=== PATIENT | female | born 1985 | race Caucasian/White ===

== ENCOUNTER 2018-03-16 17:53 | Emergency (ER) | payer OTHER ==
[~2018-03-16] VITALS: Ht 167.6 cm; Wt 91.9 kg
[~2018-03-16 17:53] MED LIST: METH10TA4 PO; MULTTAB58 PO
[2018-03-16 17:57] VITALS: TEMP 36.6; Ht 167.6 cm; Wt 91.9 kg
[2018-03-16] MEDS ORDERED: SODIUM CHLORIDE 0.9% 1000ML 1,000 ML IV STA (18:13)
[2018-03-16] MEDS ORDERED: ONDANSETRON INJ 2 MG/ML 2 ML VIAL IV STA (18:13)
[2018-03-16] MEDS ORDERED: MELA3TAB12 PO (18:39)
[2018-03-16 18:43] VITALS: O2SAT 99
[2018-03-16 19:30] LABS: BASO % 0.6 %; BASO ABS # 0.04 K/uL (0-0.2); EOS % 1.8 %; EOS ABS # 0.13 K/uL (0-0.5); HEMATOCRIT 37.9 % (37-47); HEMOGLOBIN 12.6 g/dL (12.0-16.0); IG# 0.01 K/uL (0.00-0.02); LYMPH % 24.6 %; LYMPH ABS # 1.76 K/uL (1.2-3.4); MEAN CELL VOLUME 89.2 fL (80-100); MEAN CORPUSCULAR HEMOGLOBIN 29.6 pg (25-34); MEAN CORPUSCULAR HGB CONC 33.2 g/dl (32-36); MEAN PLATELET VOLUME 9.8 fL (7.4-10.4); MONO % 8.8 %; MONO ABS # 0.63 K/uL (0.11-0.59); NEUT % 64.1 %; NEUT ABS # 4.57 K/uL (1.4-6.5); PLATELET COUNT 287 K/uL (130-400); RED CELL DISTRIBUTION WIDTH CV 13.2 % (11.5-14.5); WHITE BLOOD COUNT 7.14 K/uL (4.8-10.8)
[2018-03-16 19:39] LABS: CALCIUM 9.2 mg/dl (8.5-10.1); CREATININE 0.89 mg/dl (0.60-1.20); INR 1.1 (0.9-1.1); POTASSIUM 3.3 mmol/L (3.5-5.1); PTT PATIENT 26.4 SECONDS (21.0-31.0)
--- NOTE | 2018-03-16 19:45 | DIAGNOSTIC IMAGING REPORT ---
PA CHEST WITH ABDOMINAL SERIES CLINICAL HISTORY: Atypical chest pain. Generalized abdominal pain. FINDINGS: A PA chest radiograph is compared to study dated 02/07/2012. The cardiomediastinal silhouette is unremarkable. The lungs and pleural spaces are clear. No pneumothorax is seen. The bony thorax is grossly intact. Supine and erect abdominal radiographs are correlated with abdominal CT dated 06/28/2016. There is a nonobstructed abdominal bowel gas pattern. Moderate fecal retention is noted in the right colon. No evidence of intraperitoneal free air is seen. There are no abnormal abdominal calcifications. Small phleboliths are seen in the pelvis. The lumbosacral spine and bony pelvis appear intact. IMPRESSION: 1. No active disease in the chest. 2. Nonobstructed abdominal bowel gas pattern. Electronically signed by: Selvin Roberson M.D. 03/16/2018 7:44 PM Dictated Date/Time: 03/16/2018 7:42 PM
[2018-03-16] MEDS ORDERED: ONDA4TAB10 SL (19:55)
[2018-03-16] MEDS ORDERED: ONDANSETRON HOME PACK 4MG OD TAB PO ONE (20:00)
[2018-03-16 20:04] VITALS: BP 128/72; PULSE 78; O2SAT 98
--- NOTE | 2018-03-17 00:35 | EMERGENCY ROOM VISIT NOTE ---
History Report prepared by Sophie: Maikel Cuellar Under the Supervision of: Dr. Alejandro Wilkins M.D. First contact with patient: 18:00 Chief Complaint: VOMITING Stated Complaint: VERY BAD CHEST PAIN, THROWING UP BLOOD History of Present Illness The patient is a 32 year old female who presents to the Emergency Room with complaints of persistent, severe vomiting beginning last night. The patient reports noticing blood in her vomit this morning. She describes the vomit as dark, clumpy, and red. She does state that she was drinking red Gatorade but feels like she tasted blood. The patient notes that she experienced diarrhea, headaches, hot flashes, swelling of her lower extremity at the ankle, and abdominal pain last night, but states that these symptoms have since resolved. 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 She also reports experiencing sharp, burning pain in the center of her chest which is worsened upon inhalation and vomiting.The patient denies experiencing melena or fever. She also denies taking an oral contraceptive. The patient notes that she used to smoke 1 pack of cigarettes per day, but states that she has reduced her smoking to 1/2 pack a day. She reports feeling SOB. Source of History: patient Onset: Last night Position: chest, abdomen Symptom Intensity: severe Quality: other (vomiting ) Timing: other (persitent ) Modifying Factors (Worsening): other (inhalation. ) Modifying Factors (Relieving): other (none ) Associated Symptoms: + headache, + chest pain, + SOB, + nausea, + abdominal pain, + diarrhea, No fevers, No melena Note: Associated Symptoms: Hot flashes, swelling of ankles Review of Systems See HPI for pertinent positives & negatives. A total of 10 systems reviewed and were otherwise negative. 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 (2) Emphysema (3) Hypertension (4) MAL GEOFF CERVIX UTERI NOS (5) MIGRAINE UNSPECIFIED W/O INTRACT MGRN W/O STATUS MIGRAINOSUS (6) OPIOID ABUSE-UNSPEC Surgical Problems: (1) Hx of tubal ligation Family History Diabetes mellitus Hypertension Social History Smoking Status: Current Every Day Smoker Alcohol Use: occasionally Drug Use: none Marital Status: Housing Status: lives with family Occupation Status: unemployed Current/Historical Medications Scheduled Melatonin-Pyridoxine (Melatonin), 2 TAB PO HS Methylphenidate (Ritalin), 10 MG PO TID Ondasetron Odt (Zofran Odt), 4 MG SL Q6H Allergies Coded Allergies: Ibuprofen (Verified Allergy, Intermediate, SWELLING, 09/11/17) Vancomycin (Verified Adverse Reaction, Intermediate, Generalized redness and itching, 09/11/17) Tramadol (Unverified Adverse Reaction, Unknown, seizures, 09/11/17) Physical Exam Vital Signs Date Time Temp Pulse Resp B/P (MAP) Pulse Ox O2 Delivery O2 Flow Rate FiO2 03/16/18 20:04 78 20 128/72 98 03/16/18 18:48 105 03/16/18 18:43 99 Room Air 03/16/18 18:43 104 22 116/59 99 Room Air 03/16/18 17:57 36.6 114 20 131/78 96 Room Air Physical Exam Constitutional: Vital signs reviewed. Eyes: Pupils are equal round reactive to light. Conjunctiva are noninjected. ENT: Pharynx is clear without erythema or exudate. Mucous membranes are dry. Neck supple without meningeal signs. Respiratory: Clear to auscultation bilaterally. Breath sounds are equal bilaterally. Cardiovascular: Regular rate and rhythm. No rubs or gallops. GI: Soft, nondistended and nontender. Bowel sounds are present. Musculoskeletal: Tenderness to the lower sternum on palpation. No significant edema to lower extremities or tenderness. Integumentary: No cyanosis. Rectal: Guaiac negative, light brown liquidy stool. Neurological: The patient is awake and alert. No focal deficits. Psychiatric: Normal affect. Medical Decision & Procedures ER Provider Diagnostic Interpretation: Radiology results as stated below per my review and the radiologist's interpretation: PA CHEST WITH ABDOMINAL SERIES CLINICAL HISTORY: Atypical chest pain. Generalized abdominal pain. FINDINGS: A PA chest radiograph is compared to study dated 02/07/2012. The cardiomediastinal silhouette is unremarkable. The lungs and pleural spaces are clear. No pneumothorax is seen. The bony thorax is grossly intact. Supine and erect abdominal radiographs are correlated with abdominal CT dated 06/28/2016. There is a nonobstructed abdominal bowel gas pattern. Moderate fecal retention is noted in the right colon. No evidence of intraperitoneal free air is seen. There are no abnormal abdominal calcifications. Small phleboliths are seen in the pelvis. The lumbosacral spine and bony pelvis appear intact. IMPRESSION: 1. No active disease in the chest. 2. Nonobstructed abdominal bowel gas pattern. Electronically signed by: Selvin Roberson M.D. 03/16/2018 7:44 PM Dictated Date/Time: 03/16/2018 7:42 PM Laboratory Results 03/16/18 18:49 Red Blood Count 4.25, Mean Corpuscular Volume 89.2, Mean Corpuscular Hemoglobin 29.6, Mean Corpuscular Hemoglobin Concent 33.2, Mean Platelet Volume 9.8, Neutrophils (%) (Auto) 64.1, Lymphocytes (%) (Auto) 24.6, Monocytes (%) (Auto) 8.8, Eosinophils (%) (Auto) 1.8, Basophils (%) (Auto) 0.6, Neutrophils # (Auto) 4.57, Lymphocytes # (Auto) 1.76, Monocytes # (Auto) 0.63, Eosinophils # (Auto) 0.13, Basophils # (Auto) 0.04 03/16/18 18:49 Test 03/16/18 18:49 03/16/18 19:12 White Blood Count 7.14 K/uL (4.8-10.8) Red Blood Count 4.25 M/uL (4.2-5.4) Hemoglobin 12.6 g/dL (12.0-16.0) Hematocrit 37.9 % (37-47) Mean Corpuscular Volume 89.2 fL (80-100) Mean Corpuscular Hemoglobin 29.6 pg (25-34) Mean Corpuscular Hemoglobin Concent 33.2 g/dl (32-36) Platelet Count 287 K/uL (130-400) Mean Platelet Volume 9.8 fL (7.4-10.4) Neutrophils (%) (Auto) 64.1 % Lymphocytes (%) (Auto) 24.6 % Monocytes (%) (Auto) 8.8 % Eosinophils (%) (Auto) 1.8 % Basophils (%) (Auto) 0.6 % Neutrophils # (Auto) 4.57 K/uL (1.4-6.5) Lymphocytes # (Auto) 1.76 K/uL (1.2-3.4) Monocytes # (Auto) 0.63 K/uL (0.11-0.59) Eosinophils # (Auto) 0.13 K/uL (0-0.5) Basophils # (Auto) 0.04 K/uL (0-0.2) RDW Standard Deviation 43.0 fL (36.4-46.3) RDW Coefficient of Variation 13.2 % (11.5-14.5) Immature Granulocyte % (Auto) 0.1 % Immature Granulocyte # (Auto) 0.01 K/uL (0.00-0.02) Prothrombin Time 11.4 SECONDS (9.0-12.0) Prothromb Time International Ratio 1.1 (0.9-1.1) Activated Partial Thromboplast Time 26.4 SECONDS (21.0-31.0) Partial Thromboplastin Ratio 1.0 Anion Gap 8.0 mmol/L (3-11) Est Creatinine Clear Calc Drug Dose 104.6 ml/min Estimated GFR () 100.1 Estimated GFR (Non- 86.4 BUN/Creatinine Ratio 17.2 (10-20) Calcium Level 9.2 mg/dl (8.5-10.1) Bedside D-Dimer 254 ng/mlFEU (0-450) Laboratory results as reviewed by me. Medications Administered Medications (Trade) Dose Ordered Sig/Neeta Route Start Time Stop Time Status Last Admin Dose Admin Sodium Chloride 1,000 ml @ 999 mls/hr Q1H1M STAT IV 03/16/18 18:13 03/16/18 19:13 DC 03/16/18 18:42 999 MLS/HR Ondansetron HCl (Zofran Inj) 4 mg NOW STAT IV 03/16/18 18:13 03/16/18 18:15 DC 03/16/18 18:42 4 MG Ondansetron HCl (ZOFRAN ODT 4MG Home Pack) 1 homepack UD ONCE PO 03/16/18 20:00 03/16/18 20:01 DC 03/16/18 20:00 1 HOMEPACK ECG Per My Interpretation Indication: chest pain Rate (beats per minute): 96 Rhythm: normal sinus Findings: other (No st elevations, no PVCs. ) ED Course 1802: The patient was evaluated in room C01. A complete history and physical exam was performed. 1812: Ordered Zofran Inj 4mg IV and Sodium Chloride 1000 ml @ 999 mls/hr IV 1951: I reevaluated the patient, she is feeling much better. 1999: Upon reevaluation, the patient appeared to have improvement of her symptoms. I discussed richard's findings with her. She verbalized agreement of the treatment plan. She was discharged home. Medical Decision This is a 32-year-old female who presents with vomiting, diarrhea and chest pain. Differential diagnosis includes gastroenteritis, foodborne illness, dehydration, electrolyte abnormality, Medina-Genao tear, Boerhaave syndrome, pulmonary embolism. I did perform a limited focused review of portions of the patient's old chart on the electronic medical record. The patient has had no recent pertinent visits to this hospital. I did evaluate the patient as noted above. The patient is presenting with vomiting and diarrhea since yesterday. Today she developed chest pain and tasted blood in her vomit. She denies having any abdominal pain and her exam is remarkable for point tenderness to the lower sternum on palpation which reproduces the pain she was complaining about. Rectal examination shows guaiac negative liquidy light brown stool. IV access was established. The patient was placed on a continuous afternoon nanny. I did order and personally review the patient's 12-lead EKG and abdominal/chest x-rays as described above. I did order and review the patient's blood work as noted in the electronic medical record. Her white blood cell count is not elevated. She is not anemic. Her d- dimer is negative. As mentioned above her chest pain is reproducible. I suspect the blood she saw in her vomitus was either from a Medina-Genao tear or related to the Gatorade she was drinking. She was informed of her test results. She was treated with Zofran and normal saline IV. She is did state that she felt better. She was discharged with a prescription for Zofran. Medication Reconcilliation Current Medication List: was personally reviewed by me Blood Pressure Screening Patient's blood pressure: Elevated blood pressure The patient is hypertensive Impression Primary Impression: Dehydration Additional Impressions: Vomiting Diarrhea Acute chest pain Hypokalemia Scribe Attestation The scribe's documentation has been prepared under my direct and personally reviewed by me in its entirety. I confirm that the note above accurately reflects all work, treatment, procedures, and medical decision making performed by me. Departure Information Dispostion Home / Self-Care Prescriptions Ondasetron Odt (ZOFRAN ODT) 4 Mg Tab 4 MG SL Q6H for Nausea, #6 TAB Prov: Alejandro Wilkins M.D. 03/16/18 Referrals Trey Barraza M.D. (PCP) Forms HOME CARE DOCUMENTATION FORM, IMPORTANT VISIT INFORMATION Patient Instructions ED Chest Pain Atypical Unkn Cause, ED Diet High Potassium, My [facility] Additional Instructions You have been examined and treated today on an emergency basis only. This is not a substitute for, or an effort to provide, complete comprehensive medical care. It is impossible to recognize and treat all injuries or illnesses in a single emergency department visit. It is therefore important that you follow up closely with your physician. Call as soon as possible for an appointment. Return for worsening symptoms or if you develop fever, rectal bleeding, black or bloody stools, abdominal pain or any other concerning symptoms. Problem Qualifiers Additional Impressions: Vomiting Vomiting type: unspecified Vomiting Intractability: non-intractable Nausea presence: with nausea Qualified Codes: R11.2 - Nausea with vomiting, unspecified Diarrhea Diarrhea type: unspecified type Qualified Codes: R19.7 - Diarrhea, unspecified
== END 2018-03-16 20:05 | disposition home or self-care (01) ==
LOC: C.EDB 17:54 → C.EDC 20:05
DX: E86.0 Dehydration (principal); R11.2 Nausea with vomiting, unspecified; R19.7 Diarrhea, unspecified; R07.89 Other chest pain; F17.200 Nicotine dependence, unspecified, uncomplicated; I10 Essential (primary) hypertension; Z79.899 Other long term (current) drug therapy; Z88.6 Allergy status to analgesic agent; Z88.1 Allergy status to other antibiotic agents

== ENCOUNTER 2018-06-25 11:38 | Emergency (ER) | payer OTHER ==
[~2018-06-25] VITALS: Ht 167.6 cm; Wt 76.8 kg
[~2018-06-25 11:38] MED LIST changes: +MELA3TAB12 PO; -MULTTAB58 PO; +ONDA4TAB10 SL
[2018-06-25 11:40] VITALS: BP 123/51; PULSE 139; TEMP 36.7; O2SAT 94; Ht 167.6 cm; Wt 76.8 kg
--- NOTE | 2018-06-25 18:04 | EMERGENCY ROOM VISIT NOTE ---
History Report prepared by Sophie: Selina Rider Under the Supervision of: Dr. Dangelo Monterroso M.D. First contact with patient: 12:00 Chief Complaint: ABDOMINAL PAIN Stated Complaint: PAIN IN SIDE, SWOLLEN FEELS LIKE SOMETHING BITING History of Present Illness The patient is a 32 year old female who presents to the Emergency Room with complaints of an episode of right lower quadrant pain that onset this morning between 1030 and 1100. The patient's boyfriend states that she has bees near her house and that she complained of hearing buzzing last night before she went to bed. The patient describes the pain as waxing and waning in intensity and is a burning sensation. See states that the pain onset when she noticed that "something was crawling under her skin". She notes that the area is swollen and is getting bigger. The patient states that she took aspirin for the pain earlier this morning. The patient states the pain increases with movement. She notes that she was nauseous earlier, but is not currently nauseous. The patient complains of diaphoresis and warmness in the area. The patient denies urinary symptoms, current nausea, fever, diarrhea, back pain, upper abdominal pain, left flank pain, difficulty breathing, and leg pain. She notes that she had a stent put in when she was for her bladder that was taken out when her child was born. The patient states that she was on Suboxone, but took herself off it two months ago. She notes that although she has a lot of stress in her life, she does not currently feel anxious. Source of History: patient Onset: This morning between 1030 and 1100 Position: abdomen (RLQ) Quality: burning Timing: waxes/wanes Modifying Factors (Worsening): movement Associated Symptoms: + diaphoresis, No fevers, No nausea, No abdominal pain , No back pain, No diarrhea, No urinary symptoms Note: The patient complains of warmness in her right lower quadrant. The patient denies left lank pain, difficulty breathing, and leg pain. Review of Systems See HPI for pertinent positives and negatives. A total of ten systems were reviewed and were otherwise negative. 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 (2) Emphysema (3) Hypertension (4) MAL GEOFF CERVIX UTERI NOS (5) MIGRAINE UNSPECIFIED W/O INTRACT MGRN W/O STATUS MIGRAINOSUS (6) OPIOID ABUSE-UNSPEC Surgical Problems: (1) Hx of tubal ligation Family History Diabetes mellitus Hypertension Social History Smoking Status: Current Every Day Smoker Alcohol Use: occasionally Drug Use: none Marital Status: Housing Status: lives with family Occupation Status: unemployed Current/Historical Medications No Active Prescriptions or Reported Meds Allergies Coded Allergies: Ibuprofen (Verified Allergy, Intermediate, SWELLING, 06/25/18) Vancomycin (Verified Adverse Reaction, Intermediate, Generalized redness and itching, 06/25/18) Tramadol (Unverified Adverse Reaction, Unknown, seizures, 06/25/18) Physical Exam Vital Signs Date Time Temp Pulse Resp B/P (MAP) Pulse Ox O2 Delivery O2 Flow Rate FiO2 06/25/18 11:40 36.7 139 18 123/51 94 Room Air Physical Exam GENERAL: Awake, alert. Uncomfortable, fidgeting on litter. HENT: Normocephalic, atraumatic. Oropharynx unremarkable. EYES: Normal conjunctiva. Sclera non-icteric. NECK: Supple. No nuchal rigidity. RESPIRATORY: Clear to auscultation. Normal respiratory effort. CARDIAC: Tachycardic. Normal rhythm. Extremities warm and well perfused. GI: Soft, non-distended. Moderate right lower quadrant tenderness. RLQ guarding. RECTAL: Deferred. MUSCULOSKELETAL: Atraumatic. Chest examination reveals no tenderness. There is no CVA tenderness to palpation. LOWER EXTREMITIES: Calves are equal size bilaterally and non-tender. No edema NEURO: Normal sensorium. No sensory or motor deficits noted. No facial droop. SKIN: Warm and dry. No rash or jaundice noted. Medical Decision & Procedures ED Course 1202: The patient was evaluated in room C7. A complete history and physical exam was performed. 1222: I reevaluated the patient. The patient left against medical advice. Medical Decision Triage Nursing notes reviewed. Differential diagnosis: Etiologies such as appendicitis, diverticulitis, PUD, biliary pathology, UTI, pancreatitis, obstruction, mesenteric ischemia, aortic pathology, infections, inflammatory bowel disease, renal colic, as well as others were entertained. Patient presents complaining of onset an hour and half ago of right lower quadrant pain intermittent worse with movement. Some transient nausea but no vomiting. No diarrhea. Very localized. No trauma. Denies significant history of this. No back pain. Concern for possible abdominal process such as appendicitis colitis pancreatitis, or possible UTI. Recommended the patient that we obtain blood work and imaging to evaluate for these. Patient states that she is going to leave and did not feel comfortable here. Made multiple overtures the patient along with the patient significant other regarding the risks and benefits of this. Advised that we recommend at least blood work until we can give her some medicine to help with her pain and symptoms. She states that she did not want to do this that she does want to go home and come back if it gets worse. She acknowledged dangers involved in this including significant injury, infection, organ failure, or . She was ambulatory out of the department after completing the AGAINST MEDICAL ADVICE form. PATIENT LEAVING AGAINST MEDICAL ADVICE: I have provided information to the patient regarding his/her condition, treatment and/or additional diagnostic tests required and the risks and benefits of these as well as lack thereof. I have also discussed alternate treatment plans. I have confirmed that the patient understands his condition and the risks of leaving against medical advice including worsening of his condition, disability and . The patient is considered competent and has the ability to use the information I have provided to come to a reasoned decision. According to the information available to me the patient's decision is in keeping with the patient's goals, wishes, values and willingness to assume these risks. I have considered the risks to the patient of his refusal and believe that the patient's capacity to make decisions is adequate to assume this risk. Medication Reconcilliation Current Medication List: was personally reviewed by me Blood Pressure Screening Patient's blood pressure: Normal blood pressure Impression Primary Impression: Right lower quadrant abdominal pain Scribe Attestation The scribe's documentation has been prepared under my direction and personally reviewed by me in its entirety. I confirm that the note above accurately reflects all work, treatment, procedures, and medical decision making performed by me. Departure Information Dispostion Against Medical Advice Prescriptions No Active Prescriptions or Reported Meds Referrals Trey Barraza M.D. (PCP) Forms Call Back Authorization, HOME CARE DOCUMENTATION FORM, IMPORTANT VISIT INFORMATION Patient Instructions My [facility]
== END 2018-06-25 12:26 | disposition left against medical advice (07) ==
LOC: C.EDB 11:39 → C.EDC 12:26
DX: R10.31 Right lower quadrant pain (principal); I10 Essential (primary) hypertension; J43.9 Emphysema, unspecified; F17.200 Nicotine dependence, unspecified, uncomplicated

== ENCOUNTER 2018-06-28 11:14 | Emergency (ER) | payer SELFPAY ==
[~2018-06-28] VITALS: Ht 167.6 cm; Wt 77.6 kg
[2018-06-28 11:23] VITALS: TEMP 36.7; Ht 167.6 cm; Wt 77.6 kg
[2018-06-28] MEDS ORDERED: HYDR1CAP85 PO (12:53)
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
[2018-06-28 13:32] VITALS: BP 119/74; PULSE 97; O2SAT 98
== END 2018-06-28 13:34 | disposition home or self-care (01) ==
LOC: C.EDB 11:16 → C.EDC 13:34
DX: Z20.2 Contact with and (suspected) exposure to infections with a predominantly sexual mode of transmission (principal); F17.200 Nicotine dependence, unspecified, uncomplicated; Z88.8 Allergy status to other drugs, medicaments and biological substances